=== PATIENT | male | born 1995 | race African-American/Black ===

== ENCOUNTER 2019-10-20 08:52 | Emergency (ER) | payer MEDICAID, SELFPAY ==
[~2019-10-20] VITALS: Ht 175.3 cm; Wt 63.5 kg
[2019-10-20 09:02] VITALS: BP 133/77
--- NOTE | 2019-10-20 09:18 | NUR ---
23 Y/O MALE C/O N/V/D SINCE LAST NIGHT, GENERALIZED WEAKNESS X2 DAYS. PT STATES HE TESTED + FOR COVID ON TUESDAY. DENIES ANY ABD PAIN, BOWEL SOUNDS ARE NORMOACTIVE IN ALL QUADRANTS. RESP EVEN AND UNLABORED. DENIES ANY SOB/CP. AMBULATORY WITH STEADY GAIT. NO PMH NKA
[2019-10-20] MEDS ORDERED: ONDANSETRON 4 MG/2 ML VIAL IVP ONE ×2 (09:30→10:40)
[2019-10-20] MEDS ORDERED: NACL 0.9% 1,000 ML IV ONE ×2 (09:30→11:10)
[2019-10-20 09:47] LABS: BASOPHILS % (AUTO) 0.3 % (0.0-2.0); HEMATOCRIT 43.4 % (36-52); HEMOGLOBIN 14.7 g/dL (12.0-18.0); MEAN CORPUSCULAR HEMOGLOBIN 28 pg (27-31); MEAN CORPUSCULAR HGB CONC 34 g/dL (33-37); MEAN CORPUSCULAR VOLUME 83.6 fL (80-94); MONOCYTES # (AUTO) 0.5 K/uL (0.8-1.0); MONOCYTES % (AUTO) 8.2 % (1.7-9.3); NEUTROPHILS # (AUTO) 5.1 K/uL (1.8-7.7); NEUTROPHILS % (AUTO) 76.5 % (42.2-75.2); PLATELET COUNT (AUTO) 162 K/uL (140-450); RED CELL DISTRIBUTION WIDTH 13.4 % (11.6-13.7); WHITE BLOOD COUNT (AUTO) 6.6 K/uL (4.8-10.8)
[2019-10-20 10:00] LABS: ALBUMIN 3.6 g/dL (3.4-5.0); ANION GAP 15.7 (8-16); CARBON DIOXIDE 26.2 mmol/L (21-32); CREATININE 1.1 mg/dL (0.6-1.3); POTASSIUM 3.9 mmol/L (3.5-5.1); TOTAL BILIRUBIN 0.6 mg/dL (0.0-1.0)
--- NOTE | 2019-10-20 10:00 | NUR ---
PO CHALLENGE INITIATED PER ERMD PATRICIA ORDER
--- NOTE | 2019-10-20 10:36 | NUR ---
PT UNABLE TO KEEP WATER DOWN, HAD 2 EPISODES OF EMESIS. NINO GOMEZ MADE AWARE
[2019-10-20] MEDS ORDERED: METOCLOPRAMIDE 10 MG/2 ML INJ VIAL IVP ONE (11:05)
[2019-10-20] MEDS ORDERED: HALOPERIDOL IM 5 MG/ML VIAL IM ONE (12:00)
[2019-10-20 14:13] VITALS: BP 142/62
== END 2019-10-20 14:40 | disposition home or self-care (01) ==
LOC: MED 08:52
DX: B34.9 Viral infection, unspecified (principal); F12.90 Cannabis use, unspecified, uncomplicated
CPT/HCPCS: 36415; 80053; 83690; 85025; 93005; 96361; 96372; 96374; 96375; 96376; 99284; J1630; J2405; J2765; J7030

== ENCOUNTER 2019-10-21 08:15 | Emergency (ER) | payer MEDICAID, SELFPAY ==
[~2019-10-21] VITALS: Ht 175.3 cm; Wt 63.5 kg
--- NOTE | 2019-10-21 08:20 | NUR ---
Pt placed in tent for covid precautions
[2019-10-21 08:21] VITALS: BP 135/72
--- NOTE | 2019-10-21 08:24 | NUR ---
23 y/o male from home c/o generalized body aches x 2 hrs. Pt states he tested + for covid 1 wk ago. Denies respiratory symptoms. Awake and alert. RR even and unlabored. VSS
--- NOTE | 2019-10-21 08:55 | NUR ---
Dr Barron in tent examining pt
--- NOTE | 2019-10-21 09:00 | NUR ---
SPOKE WITH PT IN LENGTH REGARDING COVID AND IT'S SYMPTOMS. PT ENCOURAGED TO KEEP FACE MASK AND AVOID SOCIAL GATHERINGS BUT TO REMAIN ACTIVE ON HIS OWN
[2019-10-21] MEDS ORDERED: BACLOFEN 10 MG TAB PO STA (09:13)
--- NOTE | 2019-10-21 09:18 | NUR ---
Patient discharged with v/s stable. Written and verbal after care instructions given and explained. Patient verbalized understanding. Ambulatory with steady gait. All questions addressed prior to discharge. Advised to follow up with PMD.
[2019-10-21 09:32] VITALS: BP 135/72
== END 2019-10-21 09:18 | disposition home or self-care (01) ==
LOC: MED 08:15
DX: M79.10 Myalgia, unspecified site (principal); Z20.828 Contact with and (suspected) exposure to other viral communicable diseases
CPT/HCPCS: 71045; 99283; Q0092

== ENCOUNTER 2022-05-26 10:24 | Emergency (ER) | payer MEDICAID ==
[~2022-05-26] VITALS: Ht 175.3 cm; Wt 70.8 kg
[2022-05-26 10:27] VITALS: BP 142/88
--- NOTE | 2022-05-26 10:31 | NUR ---
26 Y/O MALE BIB SELF, C/O BUMP ON LIP THAT "POPPED" AND THEN INCREASED IN SIZE FOR 2 WEEKS. 10 BURNING SENSATION AT THIS TIME. DENIES FEVER, N/V/D. PMH: DENIES NKA MED: DENIES
[2022-05-26] MEDS ORDERED: ACYC400T14 PO ×2 (12:09→15:23)
[2022-05-26 15:28] VITALS: BP 133/76
--- NOTE | 2022-05-26 15:29 | NUR ---
Patient discharged with v/s stable. Written and verbal after care instructions given and explained. Patient alert, oriented and verbalized understanding of instructions. Ambulatory with steady gait. All questions addressed prior to discharge. ID band removed. Patient advised to follow up with PMD. Rx of ACYCLOVIR given. Patient educated on indication of medication including possible reaction and side effects. Opportunity to ask questions provided and answered.
== END 2022-05-26 15:29 | disposition home or self-care (01) ==
LOC: MED 10:24
DX: K13.0 Diseases of lips (principal); Z79.899 Other long term (current) drug therapy
CPT/HCPCS: 86592; 99283

== ENCOUNTER 2022-12-27 17:44 | Emergency (ER) | payer MEDICAID ==
[~2022-12-27] VITALS: Ht 175.3 cm; Wt 70.3 kg
[~2022-12-27 17:44] MED LIST: ACYC400T14 PO
[2022-12-27 19:07] VITALS: BP 127/73; PULSE 60; RESP 18; TEMP 97.7; O2SAT 99
== END 2022-12-28 | disposition left against medical advice (07) ==
LOC: MED 17:44
DX: M25.572 Pain in left ankle and joints of left foot (principal); Z53.21 Procedure and treatment not carried out due to patient leaving prior to being seen by health care provider
CPT/HCPCS: 99281